=== PATIENT | male | born 1945 | race Caucasian/White ===

== ENCOUNTER → 2020-09-25 | Outpatient (CLI) | payer OTHER ==
[~2020-09-25] MED LIST: B12INJ PO; CALCIUM 500 +1 EAC5 PO; SIMVASTATIN80 MG PO; TRI-FLEX PO; VITAMINC500 PO
== END ==
LOC: RAD 15:23
PROVIDERS: ATTEND Pediatrics
DX: J98.11 Atelectasis (principal); R06.02 Shortness of breath